=== PATIENT | male | born 1980 | race Hispanic/Latino ===

== ENCOUNTER 2023-09-28 09:31 | Emergency (ER) | payer OTHER, SELFPAY ==
[2023-09-28] VITALS (7 sets, daily range): BP systolic 97–177; BP diastolic 77–132; BMI 25.0
[2023-09-28] MEDS: NSS 1000 IV (10:11)
[2023-09-28 10:19] LABS: % Basophils 0.1 % (0-2); % Immature Granulocytes 0.5 % (0-0.5); % Lymphocytes 5.4 % (20.5-51.1); % Monocytes 2.6 % (1.7-9.3); % Neutrophils 91.4 % (42.2-75.2); Absolute Immature Granulocytes 0.1 10^3/uL (0-0.05); Absolute Lymphocytes 0.8 10^3/uL (1.2-3.4); Absolute Monocytes 0.4 10^3/uL (0.1-0.6); Absolute Neutrophils 13.8 10^3/uL (1.4-6.5); Hematocrit 29.4 % (39.0-52.0); Mean Corpuscular Hgb 30.6 pg (27.0-31.0); Mean Corpuscular Volume 89.9 fL (80.0-94.0); Mean Platelet Volume 9.1 fL (7.4-10.4); Nucleated Red Blood Cells % 0 % (-); Platelet Count 404 10^3/uL (130-400); Red Blood Cell Count 3.27 10^6/uL (4.70-6.10); Red Cell Dist. Width 12.4 % (11.5-14.5); White Blood Cell Count 15.1 10^3/uL (4.8-10.8)
--- NOTE | 2023-09-28 10:25 | ED.GENMED ---
History of Present Illness
General
Chief Complaint: Abdominal Pain
Time Seen by Provider: 09/28/23 09:43
Travel History
Have you had any contact with someone who has COVID-19?: No
Do you have any symptoms of coronavirus? Fever > 100 degrees, chills, cough, shortness of breath, sore throat, loss of taste or smell, muscle aches, or headache?: No
History of Present Illness
History of Present Illness:
HPI: The patient presents due to abdominal pain. He does have a history of OxyContin abuse until 6 years ago and is currently on Suboxone. He also had been drinking alcohol daily until about a month ago and greatly decrease his usage. The pain
that he is currently experiencing feels somewhat similar to the time that he had pancreatitis. The patient has no hallucinations, there is no significant nausea or vomiting. He does not feel confused. He does tell me that he fell 2 days ago onto
his back related to the snow fall.
EXAM:
GENERAL: The patient appears somewhat uncomfortable
HEENT: Slightly dry oral mucosa
CARDIOVASCULAR: No murmurs, tachycardic heart rate with regular rhythm, No chest wall tenderness
PULMONARY: No respiratory distress, breath sounds are clear and equal
ABDOMEN: Soft with borderline peritoneal signs, moderate upper left greater than right tenderness
NEUROLOGIC: Good strength all extremities, no coordination deficits
PSYCHIATRIC: Appropriate mental status, fair insight and judgement, CIWA score = 6, he does not appear to be intoxicated but does appear slightly confused at times
EXTREMITIES: Nontender, no edema, moves all extremities equally
SKIN: No rash, no lesions
ED COURSE:
10:20 AM: I initially evaluated patient
NUMBER AND COMPLEXITY OF PROBLEMS ADDRESSED AT THE ENCOUNTER
� Chronic conditions affecting care: Former opiate use, current alcohol abuse, has had pancreatitis in the past
� Acute Exacerbation and/or Progression of Chronic Illness: This is an acute problem but has had similar episodes in the past
� Differential Diagnosis includes: Pancreatitis, alcohol withdrawal, GERD, reflux, intra-abdominal hemorrhage, rib fracture
AMOUNT AND/OR COMPLEXITY OF DATA TO BE REVIEWED AND ANALYZED
� I performed an independent evaluation of and my interpretation is:
EKG: Sinus 151, rate related ST abnormality, he was also tachycardic on EKG from 01/10/2023
CT: I personally reviewed CT imaging which shows a subcapsular splenic hematoma, there is also some fluid around the liver
X-rays:
Laboratory Studies: White count is elevated at 15.1, hemoglobin is 10.0 down from 10.2
Other:
� Review of other/old records: Last admission from December 2022 showed a hypodensity of the pancreas and MRI was obtained at that time and radiologist noted pancreatitis/felt that pancreatic mass was less likely. I also reviewed the
records and it appears he was receiving narcotic analgesia despite being on Suboxone and the patient tolerated well.
� Clinical information was obtained by an independent historian: I spoke to the brother at bedside
� Prescriptions/Medications Considered but not given:
� Further testing considered but not performed:
RISK OF COMPLICATIONS AND/OR MORBIDITY OR MORTALITY OF PATIENT MANAGEMENT
� Social determinants of health affecting care: Lives at home
� Discussion with other providers: I discussed with Dr. Calloway at [facility] who accepts to his service
� Escalation of care including admission/observation vs risk of discharge considered: The patient appeared uncomfortable and arrived tachycardic. He was given IV fluids initially which did improve the heart rate from 150 to the
120s initially. CIWA score is 6. He appeared uncomfortable�old records indicate the patient tolerated narcotic analgesia despite being on Suboxone. I reviewed CT imaging with radiology at approximately 11:50 AM. The patient tells me that he did
fall 2 days ago. I am concerned for traumatic splenic hematoma. Radiologist felt that there was no sign of active bleeding. The patient has not been hypotensive here but persist to be tachycardic. His hemoglobin is near baseline at 10. I do
suspect that some of the tachycardia is related to alcohol withdrawal. He was given benzos. We did give him a dose of Dilaudid earlier despite being on Suboxone. He was instructed to remain n.p.o. currently.
Past History
Past History
ED Past Medical History: None
ED Past Surgical History: None
Social History
Tobacco: Smoker
Alcohol: Daily
Drug: None
Living: with family
Employment: Employed
Family History
Family History: Other (Noncontributory)
Phy Exam
Physical Exam
Physical Exam:
See HPI
Course
Orders/Labs/Results
Orders:
Orders
09/28/23 09:35
Electrocardiogram (*1) Urgent
Reason for Study: Abdominal Pain
EKG- Treatment ONCE
09/28/23 09:43
0.9% Sodium Chloride 1000 ml [Nss] 1,000 ml IV BOLUS
09/28/23 09:56
Basic Metabolic Panel Urgent
Complete Blood Count/With Diff Urgent
Lipase Urgent
Troponin I Urgent
09/28/23 10:32
CT Abd/pelvis W Iv Cont Urgent
Comment:
Reason For Exam: upper abd pain; prior pancreatitis; normal lipase
09/28/23 11:02
Lorazepam [Ativan] 2 mg .ROUTE .STK-MED ONE
Lorazepam [Ativan] 2 mg IV NOW STA
09/28/23 12:23
Fentanyl Citrate/Pf [Sublimaze] 75 mcg IV NOW STA
09/28/23 12:24
Fentanyl Citrate/Pf [Sublimaze] 100 mcg .ROUTE .STK-MED ONE
Abnormal Lab Results
09/28/23
09:56
WBC 15.1 H 10^3/uL
(4.8-10.8)
RBC 3.27 L 10^6/uL
(4.70-6.10)
Hgb 10.0 L g/dL
(13.0-18.0)
Hct 29.4 L %
(39.0-52.0)
Plt Count 404 H 10^3/uL
(130-400)
Abs Immat Gran (auto) 0.1 H 10^3/uL
(0-0.05)
Absolute Neuts (auto) 13.8 H 10^3/uL
(1.4-6.5)
Absolute Lymphs (auto) 0.8 L 10^3/uL
(1.2-3.4)
Neutrophils % 91.4 H %
(42.2-75.2)
Lymphocytes % 5.4 L %
(20.5-51.1)
Sodium 134 L mmol/L
(135-145)
BUN 8 L mg/dl
(9-20)
Creatinine 0.5 L mg/dL
(0.7-1.3)
Glucose 229 H mg/dl
(70-99)
09/28/23 09:56
09/28/23 09:56
Vital Signs
Initial and Last Documented VS:
Initial Vital Signs
Temp Pulse Resp BP Pulse Ox
98.9 F 148 18 177/107 98
09/28/23 09:33 09/28/23 09:33 09/28/23 09:33 09/28/23 09:33 09/28/23 09:33
Last Documented Vital Signs
Temp Pulse Resp BP Pulse Ox
98.9 F 120 17 148/91 96
09/28/23 09:33 09/28/23 12:30 09/28/23 12:30 09/28/23 12:29 09/28/23 12:30
*Critical Care Note
Total Time (30-74mins, 75-104mins- exclusive of procedures): 45 minutes
comment:
The patient is found to have a subscapular left splenic hematoma. I emergently discussed case with radiology and agree with her interpretation. I then emergently discussed case with trauma attending at [facility] who accepts for transfer. His
vital signs were closely monitored. He has remained normotensive but persists to be tachycardic. He was given benzos as well as fluids.
ED Attending Note
-
Portions of this chart may have been created with voice recognition software.� Occasional wrong word or��sound alike� substitutions may have occurred due to the inherent limitations of voice recognition software.
Discharge Plan
Departure
Patient Disposition: Acute Care Hospital
Discharge Problem:
Spleen hematoma
Prescriptions:
No Action
buprenorphine-naloxone 8-2 mg tablet, sublingual
0.5 tab SUBLINGUAL BID
Referrals:
UNKNOWN - PT DOES,NOT KNOW [Family Provider] -
Hospital Transfer
Other hospital: [facility]
I certify that the patient requires transfer: Yes
Discussed case with accepting physician: Dr. Bertram Calloway
Reason for transfer: availability of service and specialties available
Interventions
Interventions:
*Risk Screen - Suicide Last Done: 09/28/23 10:13
*General Assessment Last Done: 09/28/23 10:13
*Neglect/Abuse Screening Last Done: 09/28/23 10:13
ED- Fall Risk Assessment Last Done: 09/28/23 10:13
*ED COVID-19 Vaccine History Last Done: 09/28/23 09:33
*Nursing Disposition Last Done: 09/28/23 12:52
OP-Fytdgl-Ndhhcewrpv Assessment Last Done: 09/28/23 10:13
Discharge Date and Time
Discharge Date/Time: 09/28/23 13:05
[2023-09-28 10:31] LABS: Blood Urea Nitrogen 8 mg/dl (9-20); Calcium 8.6 mg/dl (8.4-10.2); Chloride 100 mmol/L (98-107); Estimated Creatinine Clearance > 125 ml/min; Glucose 229 mg/dl (70-99); Lipase 144 U/L (23-300); Sodium 134 mmol/L (135-145); eGFR > 60.00
[2023-09-28 10:41] LABS: Troponin I 0.014 ng/ml
[2023-09-28 10:56] LABS: Carbon Dioxide 23 mmol/L (22-30)
[2023-09-28] MEDS: ATIVAN 2 MG IV (11:04)
[2023-09-28] MEDS: SUBLIMAZE 75 MCG IV (12:28)
== END 2023-09-28 13:05 | disposition short-term general hospital (02) ==
LOC: EMR 09:31
PROVIDERS: Emergency Medicine; EMERGENCY PHYSICIAN Emergency Medicine
DX: S36.021A Major contusion of spleen, initial encounter (principal); W19.XXXA Unspecified fall, initial encounter; F17.200 Nicotine dependence, unspecified, uncomplicated; F10.10 Alcohol abuse, uncomplicated
CPT/HCPCS: 99291; 96374; 96375; 96361; 74177; 80048; 83690; 84484; 85025; 93005; Q9967